=== PATIENT | female | born 1955 | race Caucasian/White ===

== ENCOUNTER → 2016-05-02 | Outpatient (CLI) | payer MEDICARE, MEDICAID ==
[~2016-05-02] MED LIST: ALBUTEROL-200 PUFFS/ IH; ALDACTONE 50MG50 MG PO; ALL DAY ALLERGY10 MG PO; AMITIZA24 MCG PO; BACTROBAN2% TP; CLINDAMYCIN HC300 MG PO; CLOPIDOGREL75 M2 PO; COMBIVENT RESPI1 SPR IH; DIAZEPAM5 M1 PO; DOXYCYCLINE HY100 MG PO; DUONEB 3 MG/3 ML3 ML IH; FLONASE 50 MCG16 GM; FUROSEMIDE40 MG PO; HYDROXYZINE 25M25 MG PO; LIPITOR40 M1 PO; LORTAB 500 MG-11 TAB PO; MICRO-K 10 MEQ10 MEQ PO; NEXIUM20 MG PO; NEXIUM40 MG PO; PERCOCET 325 MG1 TA3 PO; PERCOCET1 TAB PO; PHENERGAN VC +120 ML PO; PREMARIN1.25 MG PO; ROPINIROLE HY0.25 MG PO; SYMBICORT1 AE1 IH; SYNTHROID 0.0.125 MG PO; TOPIRAMATE50 MG PO; VITAMIN D50000 IU PO; WELLBUTRIN XL150 M1 PO; ZANAFLEX4 M1 PO; ZITHROMAX Z-PA250 M2 PO
[2016-05-02 10:27] LABS: HEMOGLOBIN 14.3 g/dL (12.2-16.2); LYMPH # 1.4 K/mm3 (0.7-4.5); LYMPH % 21.4 % (10-50.0)
[2016-05-02 10:48] LABS: BUN 13 mg/dL (7-18); GFR (ESTIMATED) 86 ML/MIN (59-)
[2016-05-02 12:49] LABS: ABO BLOOD TYPE A; ANTIHUMAN GLOB CROSSMATCH COMPAT; RH BLOOD TYPE NEGATIVE
== END ==
LOC: LAB 09:36
PROVIDERS: Surgery
DX: Z01.812 Encounter for preprocedural laboratory examination (principal); Z01.810 Encounter for preprocedural cardiovascular examination

== ENCOUNTER → 2016-06-19 | Outpatient (CLI) | payer MEDICARE, MEDICAID ==
--- NOTE | 2016-06-19 18:48 | RADIOLOGY REPORT PS360 ---
CT ABD PELVIS W/ CONTRAST ORDERING PHYSICIAN : Jon Navas MD PATIENT AGE: 61 years GENDER: Female INDICATION: ABDOMINAL PAINpain since colon surgery TECHNIQUE: 75 cc [id number]. No oral contrast utilized Note: patient states allergic to IV contrast premedicated prior to the scan with Benadryl and prednisone with traditional standard prior day protocol. Patient had no no difficulty with contrast today. No reaction COMPARISON: Prior CT abdomen pelvis December 2015 FINDINGS Lung bases. No acute findings. Elevation right hemidiaphragm again note moderate scarring at the right lung base laterally. Otherwise lung bases clear. Benign calcified granuloma at the left base. Heart normal size Liver. Satisfactory no focal lesions. Gallbladder removed. No biliary duct dilatation.. Spleen. Unremarkable. Pancreas satisfactory. Adrenals satisfactory, stable.. Slightly plump left adrenal unchanged Kidneys. No urinary tract calculi or obstruction. GI tract: Colon anastomosis is seen at the mid abdomen just posterior to the level of the umbilicus . Anastomosis appears intact with some only question is perhaps minor wall thickening at the colon leading to the anastomosis. No inflammation is seen specifically about the point of anastomosis. Patient also had ventral hernia repair with mesh graft seen along the posterior aspect of the midline incision here at the upper abdomen,-at and extending above the umbilicus. This anterior to the anastomosis site discussed above. Just to the right of the anastomosis and extending to the fat posterior to the umbilicus, there is continued inflammatory changes in the omentum and mesentery towards right mid abdomen. I see no discrete features or inflammation of bowel. This possibly could reflect a epiploic appendigitis type process conceivably. I would also note that some of the small bowel loops are closely applied to the anterior abdominal wall which may may reflect adhesions. However There is no bowel dilatation or obstruction. Small bowel appears normal. The remaining large bowel , distal to the anastomosis, demonstrate scattered diverticula throughout the left colon with slightly more extensive diverticulosis in sigmoid colon. No diverticulitis. . No retroperitoneal nor mesenteric nor pelvic adenopathy. Aortic stent or endograft again noted. Mild crescentic intraluminal thrombus throughout. . Bilateral iliac stents also noted. I suspect there is some relative narrowing and stenosis the origin of the common iliac stents. . Impression 1. Interval right colectomy with ileocolic anastomosis at mid transverse colon. 2. Midline incision above the umbilicus. Mesh graft along the posterior aspect of this incision. 3. Posterior to these above postsurgical areas, there is mild fairly diffuse edematous changes/mild inflammation at the omentum & mesentery at midline & to the right mid abdomen. -- Presumably reflects some mild residual inflammation in the omental fat and/or epiploic appendagitis type process. No no focal fluid collection or abscess.No significant appearing wall thickening in this region. 4. No evidence of metastatic disease. Liver appears satisfactory. 5. Diverticulosis sigmoid and left colon but no evidence of diverticulitis.
== END ==
LOC: RAD 12:11
DX: R10.9 Unspecified abdominal pain (principal); R11.10 Vomiting, unspecified
CPT/HCPCS: Q9967

== ENCOUNTER → 2017-01-23 | Outpatient (CLI) | payer MEDICARE, MEDICAID ==
[2017-01-23 14:57] LABS: HEMOGLOBIN 13.3 g/dL (12.2-16.2); LYMPH % 31.3 % (10-50.0)
[2017-01-23 14:58] LABS: LYMPH # 2.2 K/mm3 (0.7-4.5)
[2017-01-23 19:28] LABS: BUN 13 mg/dL (7-18)
[2017-01-23 19:38] LABS: GFR (ESTIMATED) 73 ML/MIN (59-)
[2017-01-25 08:41] LABS: Vitamin D, 25-Hydroxy 51.7 ng/mL (30.0-100.0)
== END ==
LOC: LAB 13:54
PROVIDERS: Nurse Practitioner Family
DX: E53.8 Deficiency of other specified B group vitamins (principal); E78.5 Hyperlipidemia, unspecified; E55.9 Vitamin D deficiency, unspecified; E03.9 Hypothyroidism, unspecified; R73.9 Hyperglycemia, unspecified; H66.92 Otitis media, unspecified, left ear

== ENCOUNTER → 2017-01-25 | Outpatient (CLI) | payer MEDICARE, MEDICAID ==
--- NOTE | 2017-01-26 07:13 | RADIOLOGY REPORT PS360 ---
CT CHEST W/O CONTRAST HISTORY: Cough, pulmonary nodule PULMONARY NODULE ORDERING PHYSICIAN: JUAN STEPHENS MD PATIENT AGE: 61 years TECHNIQUE: Helical acquisition without contrast.. Axial, sagittal, and coronal reformatted images are generated and reviewed. COMPARISON: 07/27/2016 FINDINGS: Prior median sternotomy with CABG. No mediastinal or hilar mass. Normal heart size without evidence of pericardial effusion. Obstructive chronic bronchitis with chronic coarsening of the bronchovascular markings. Scattered areas of pulmonary fibrosis/scarring. No change 6 mm noncalcified nodule left lower lobe calcified granuloma left upper lobe. No new nodules evident. No effusions or infiltrates. Upper abdominal images are unremarkable. No acute bony anomalies. IMPRESSION: 1. Stable CT appearance of the chest. No change 6 mm left lower lobe nodule 2. Chronic changes with suspected obstructive chronic bronchitis, scattered areas of scarring, and whole's disease
== END ==
LOC: RAD 11-24 13:00
DX: R91.1 Solitary pulmonary nodule (principal)

== ENCOUNTER → 2017-04-09 | Outpatient (CLI) | payer MEDICARE, MEDICAID ==
[2017-04-09 13:21] LABS: HEMOGLOBIN 13.4 g/dL (12.2-16.2); LYMPH # 2.1 K/mm3 (0.7-4.5); LYMPH % 26.1 % (10-50.0)
[2017-04-09 15:32] LABS: BUN 6 mg/dL (7-18)
[2017-04-09 16:06] LABS: GFR (ESTIMATED) 57 ML/MIN (59-)
== END ==
LOC: LAB 12:49
PROVIDERS: Nurse Practitioner Family
DX: R51 Headache (principal); E11.9 Type 2 diabetes mellitus without complications; E03.9 Hypothyroidism, unspecified; J42 Unspecified chronic bronchitis